=== PATIENT | female | born 1930 | race Caucasian/White ===

== ENCOUNTER 2018-10-20 08:51 | Inpatient (IN) | payer MEDICARE ==
[~2018-10-20] VITALS: Ht 152.4 cm; Wt 45.5 kg
[~2018-10-20 08:51] MED LIST: Acetaminophen/Hydrocodone PO; Docusate Sod/Senna PO; HYDR-3910 PO; KLOR1TAB77 PO; LASI40TA PO; LEVO50TA45 PO; LISI-538 PO; METO25TAB PO; MILK12002 PO; TYLE325T5 PO
[2018-10-20] MEDS ORDERED: ONDANSETRON 4MG/2ML VIAL (J2405) IV ONE (09:15)
[2018-10-20] MEDS ORDERED: MORPHINE 2 MG/ML 1ML SYRINGE (J2270) IV PRN (09:15)
--- NOTE | 2018-10-20 09:47 | REP ---
Clinical: Trauma. Technique: AP and Y views of the right shoulder. Findings: Comminuted displaced fracture through the humeral neck is appreciated. Underlying osteopenia and degenerative changes to the acromioclavicular joint and glenoid noted. Impression: Fracture dislocation at the humeral neck. Electronically Signed by Rogerio Wadsworth MD 10/20/2018 09:39 A
--- NOTE | 2018-10-20 09:50 | REP ---
Clinical: Trauma. Technique: Frontal view of the pelvis with neutral and frog lateral views of the left hip. Findings: Generalized degenerative changes noted throughout the pelvis and bilateral hips. Old left inferior pubic ramus fracture. No acute fracture or dislocation of the pelvis or left hip noted. Impression: Generalized degenerative changes. Old left inferior pubic ramus fracture. No acute fracture or dislocation identified. Electronically Signed by Rogerio Wadsworth MD 10/20/2018 09:42 A
--- NOTE | 2018-10-20 10:31 | REP ---
Clinical: Trauma. Technique: AP and lateral views of the right elbow. Findings: No acute fracture or dislocation identified. Impression: No acute fracture or dislocation appreciated. Electronically Signed by Rogerio Wadsworth MD 10/20/2018 10:23 A
--- NOTE | 2018-10-20 11:02 | REP ---
Clinical: Trauma. Technique: Axial noncontrast images through the right shoulder with coronal and sagittal re-formations as well as multiplanar volumetric 3-D re-formations. Findings: There is comminuted fracture dislocation at the surgical neck of the humerus with fracture fragments involving the greater and lesser tubercles along with anterior displacement of the humerus in relation to the humeral head which maintains relatively appropriate apposition to the underlying glenoid rim. Small fracture fragment involving the superior glenoid rim is suggested. Remainder of the shoulder including clavicle, acromion process, and acromioclavicular joint appear essentially intact. Contusion and traumatic infiltration to the surrounding soft tissues cannot be excluded. Impression: Comminuted fracture dislocation at the surgical neck of the humerus. Possible small fracture fragment from the superior portion of the glenoid rim. Electronically Signed by Rogerio Wadsworth MD 10/20/2018 10:53 A
[2018-10-20] MEDS ORDERED: NORCOTAB PO (11:32)
[2018-10-20 12:14] LABS: BASO % 0.3 % (0.0-1.0); EOS % 0.1 % (0.0-3.0); HEMATOCRIT 37.2 % (36.0-47.0); HEMOGLOBIN 12.2 g/dl (12.0-15.5); LYMPH # 0.5 10^3/uL (1.5-4.5); LYMPH % 5.8 % (24.0-44.0); MEAN CORPUSCULAR HEMOGLOBIN 31.9 pg (27.0-33.0); MEAN CORPUSCULAR HGB CONC 32.8 g/dl (32.0-36.5); MEAN CORPUSCULAR VOLUME 97.1 fl (80.0-96.0); MONO # 0.3 10^3/uL (0.0-0.8); MONO % 4.1 % (0.0-5.0); NEUTROPHILS # 7.1 10^3/uL (1.8-7.7); NEUTROPHILS % 89.4 % (36.0-66.0); PLATELET COUNT, AUTOMATED 133 10^3/uL (150-450); RED BLOOD COUNT 3.83 10^6/uL (4.00-5.40)
[2018-10-20] MEDS ORDERED: METO1TAB87 PO (12:41)
[2018-10-20] MEDS ORDERED: POTA20TA4 PO (12:41)
[2018-10-20 12:44] LABS: ALBUMIN 3.4 GM/DL (3.2-5.2); ALT/SGPT 44 U/L (12-78); BILIRUBIN,TOTAL 0.3 MG/DL (0.2-1.0); BLOOD UREA NITROGEN 36 MG/DL (7-18); CALCIUM LEVEL 8.7 MG/DL (8.8-10.2); CARBON DIOXIDE LEVEL 31 MEQ/L (21-32); CHLORIDE LEVEL 104 MEQ/L (98-107); CREATININE FOR GFR 0.59 MG/DL (0.55-1.30); GLOMERULAR FILTRATION RATE > 60.0 (>32); GLUCOSE, FASTING 102 MG/DL (70-100); POTASSIUM SERUM 3.8 MEQ/L (3.5-5.1); SODIUM LEVEL 142 MEQ/L (136-145); TOTAL PROTEIN 6.7 GM/DL (6.4-8.2)
[2018-10-20] MEDS ORDERED: NORC1TAB4 PO (13:11)
[2018-10-20] MEDS ORDERED: SERT25TA88 PO (13:11)
[2018-10-20] MEDS ORDERED: GENT1SOL16 OU (13:12)
[2018-10-20] MEDS ORDERED: MORPHINE 4 MG/ML 1ML VIAL/SYRINGE (J2270) IV PRN (14:00)
[2018-10-20 15:55] VITALS: BP 123/62
[2018-10-20] MEDS: NORCO, ANEXSIA 5/325MG TABLET (HYDROcodone/ACETAMINOPHEN) PO PRN ×2 (17:54→23:55)
[2018-10-20] MEDS: SERTRALINE HCL 25 MG TABLET PO SCH (19:47)
[2018-10-20] MEDS: METOPROLOL TART 25 MG TABLET PO SCH (19:48)
[2018-10-20] MEDS ORDERED: NS 500 ML IV ONE (21:00)
[2018-10-20 22:00] VITALS: BP 116/61
--- NOTE | 2018-10-21 05:51 | ECGEPIP ---
Stationary ECG Study [facility] - ED Test Date: 2018-10-20 Pat Name: YESSENIA BECKHAM Department: Room: [place] [address] Gender: F Assembly Line Inspector: ALIYAH : [id number] Requested By: Venice Holliday Order Number: [id number] Reading MD: Roger Almeida Measurements Intervals [place] Rate: 83 P: 76 [place]: 151 QRS: 38 QRSD: 86 T: 43 QT: 397 QTc: 469 Interpretive Statements SINUS RHYTHM WITH OCCASIONAL SUPRAVENTRICULAR PREMATURE COMPLEXES SEPTAL MYOCARDIAL INFARCTION, OF INDETERMINATE AGE SIMILAR TO 04/13/15 Electronically Signed On 10-21-2018 5:51:29 EST by Roger Almeida
[2018-10-21] MEDS: LEVOTHYROXINE 50MCG TABLET (0.05MG) PO SCH (05:56)
[2018-10-21] MEDS: NORCO, ANEXSIA 5/325MG TABLET (HYDROcodone/ACETAMINOPHEN) PO PRN ×2 (05:57→20:24)
[2018-10-21 06:00] VITALS: BP 135/67
[2018-10-21 06:19] LABS: BASO % 0.6 % (0.0-1.0); EOS % 0.4 % (0.0-3.0); HEMATOCRIT 33.4 % (36.0-47.0); LYMPH # 0.7 10^3/uL (1.5-4.5); LYMPH % 12.8 % (24.0-44.0); MEAN CORPUSCULAR HEMOGLOBIN 32.5 pg (27.0-33.0); MEAN CORPUSCULAR HGB CONC 32.9 g/dl (32.0-36.5); MEAN CORPUSCULAR VOLUME 98.8 fl (80.0-96.0); MONO # 0.5 10^3/uL (0.0-0.8); MONO % 9.2 % (0.0-5.0); NEUTROPHILS % 76.6 % (36.0-66.0); PLATELET COUNT, AUTOMATED 133 10^3/uL (150-450); RED BLOOD COUNT 3.38 10^6/uL (4.00-5.40); WHITE BLOOD COUNT 5.2 10^3/uL (4.0-10.0)
[2018-10-21 06:40] LABS: BLOOD UREA NITROGEN 34 MG/DL (7-18); CALCIUM LEVEL 8.4 MG/DL (8.8-10.2); CARBON DIOXIDE LEVEL 31 MEQ/L (21-32); CHLORIDE LEVEL 107 MEQ/L (98-107); CREATININE FOR GFR 0.61 MG/DL (0.55-1.30); GLOMERULAR FILTRATION RATE > 60.0 (>32); GLUCOSE, FASTING 105 MG/DL (70-100); POTASSIUM SERUM 3.8 MEQ/L (3.5-5.1); SODIUM LEVEL 143 MEQ/L (136-145)
[2018-10-21] MEDS: POTASSIUM CHLORIDE 10 MEQ SR TABLET PO SCH (08:34)
[2018-10-21] MEDS: LISINOPRIL 20 MG TAB PO SCH (08:35)
[2018-10-21] MEDS: METOPROLOL TART 25 MG TABLET PO SCH ×2 (08:35→20:23)
[2018-10-21] MEDS: FUROSEMIDE 40 MG TAB PO SCH (08:35)
--- NOTE | 2018-10-21 09:11 | HPE ---
DATE OF ADMISSION: 10/20/2018 88-year-old female with past medical history of hypertension, hypothyroidism, history of fall in 2015 with subsequent left wrist and left hip fracture, who presents to the emergency room after falling at home in the morning. She was washing her kitchen with a bucket and the water spilled and she tripped and slipped and fell on the right side of her body and was able to call for help and came to the ER for evaluation. In the ER, x-rays showed a comminuted dislocation of the right humerus. The patient was to be sent home today, but the family was concerned about the patient's ambulatory status. So, physical therapy came to the ER to assess the patient and they realized that she is unsafe for discharge due to gait instability, so she will be admitted for further management. The patient at this time has 2 out of 10 pain in her right shoulder and otherwise offers no other complaints. She denies any chest pain or palpitations prior to the event, this was pure mechanical fall. PAST MEDICAL HISTORY: Hypertension. Hypothyroidism. Also has a history of a fall with a subsequent left wrist and left hip fracture in 2014. ALLERGIES: She has drug allergies to: 1. CODEINE. 2. SULFA medications. FAMILY HISTORY: Noncontributory. SOCIAL HISTORY: Patient denies tobacco, alcohol or illicit drugs. HOME MEDICATIONS: - [place] one tablet orally every 6 hours as needed - Lasix 40 mg orally daily - artificial tears as needed - Synthroid 50 mcg orally daily - lisinopril 20 mg orally daily - metoprolol tartrate 25 mg orally twice daily - potassium chloride 20 mEq orally daily - sertraline 25 mg orally in the evening REVIEW OF SYSTEMS: Negative in all 10 major systems except for which is mentioned in the history of present illness. VITALS: Blood pressure is 145/79, heart rate is 82 and regular, respiratory rate is 18, temperature 97.2, oxygen saturation is 97% on room air. Head is atraumatic, normocephalic. Neck supple, no jugular venous distention (JVD). Lungs are clear to auscultation. S1 and S2 audible, no murmurs appreciated. Abdomen soft, positive bowel sounds. No pedal edema. Skin examination shows a large ecchymosis in her right shoulder area. Neurologic examination: Patient awake, alert and oriented times three. LABS: WBC 8, hemoglobin 12.2, hematocrit 37.2, platelets 133,000. Sodium 142, potassium 3.8, chloride 104, CO2 31, BUN 36, creatinine 0.59, calcium is 8.7. X-ray of the hips and pelvis was negative for any fracture. Shoulder CT showed a comminuted fracture dislocation at the surgical neck of the right humerus. IMPRESSION: 1. Right shoulder fracture with dislocation. 2. Fall. PLAN: Patient is to be admitted to the medical/surgical floor on observation status. Dr. Singer, orthopedic doctor, is aware and is going to see the patient in the morning. I will continue all of her other previous medications and give her morphine for breakthrough pain and continue her [place] as well. Will have physical therapy/occupational therapy (PT/OT) continue to assess her. She will likely need subacute rehab.
[2018-10-21 14:00] VITALS: BP 123/60
[2018-10-21] MEDS: SERTRALINE HCL 25 MG TABLET PO SCH (20:23)
[2018-10-21 22:00] VITALS: BP 163/82
[2018-10-22] MEDS: LEVOTHYROXINE 50MCG TABLET (0.05MG) PO SCH (05:46)
[2018-10-22 06:00] VITALS: BP 163/82
[2018-10-22 08:00] VITALS: BP 120/56
[2018-10-22] MEDS: FUROSEMIDE 40 MG TAB PO SCH (08:28)
[2018-10-22] MEDS: LISINOPRIL 20 MG TAB PO SCH (08:28)
[2018-10-22] MEDS: METOPROLOL TART 25 MG TABLET PO SCH ×2 (08:29→20:38)
[2018-10-22] MEDS: POTASSIUM CHLORIDE 10 MEQ SR TABLET PO SCH (08:29)
[2018-10-22] MEDS: NORCO, ANEXSIA 5/325MG TABLET (HYDROcodone/ACETAMINOPHEN) PO PRN ×2 (08:29→16:29)
--- NOTE | 2018-10-22 09:57 | IPN ---
DATE OF SERVICE: 10/21/2018 Lisa is seen on [facility]. Her primary care provider is not specified in the history and physical, and the patient tells me she sees Dr. Cooper, who a few years ago. Anyway, she fell and fractured her right humerus. Per nursing staff, orthopedics does not feel as though she is a surgical case. Waiting for their consultation. PHYSICAL EXAMINATION: Vital signs stable. Lungs clear. Heart: Regular rate and rhythm. Abdomen: Soft, nontender. No peripheral edema. LABORATORIES: Look unremarkable. Complete blood count (CBC) is stable. Electrolytes unremarkable. IMPRESSION: 1. Fractured right humerus. Per orthopedics, nonsurgical treatment plan. 2. Hypertension. Continue lisinopril 20 mg daily, metoprolol tartrate 25 mg twice a day, Lasix 40 mg a day, potassium chloride 20 mEq daily. 3. History of depression. Continue sertraline 25 mg daily. 4. Hypothyroidism. Continue levothyroxine 50 mcg daily.
--- NOTE | 2018-10-22 09:58 | CR ---
DATE OF CONSULTATION: 10/20/2018 CHIEF COMPLAINT: Right proximal humerus fracture. HISTORY OF PRESENT ILLNESS: This 88-year-old female was mopping at home, had a slip and fall. She fell directly onto her right shoulder. She did not experience any head injury, loss of consciousness, chest pain or shortness of breath. She is right hand dominant. She has never had any injuries to her right shoulder. PAST MEDICAL HISTORY: Includes hypertension. MEDICATIONS: Include: - furosemide - lisinopril - potassium chloride - levothyroxine - metoprolol - sertraline - morphine sulfate - hydrocodone/acetaminophen ALLERGIES: 1. CODEINE. 2. SULFA antibiotics. SURGICAL HISTORY: Hysterectomy. SOCIAL HISTORY: She is retired. 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 She is a nonsmoker. Does not use any alcohol. PHYSICAL EXAMINATION: She is a well appearing 88-year-old female who looks her stated age, and is in no acute distress. Vital signs were regular. Temperature 98.8, blood pressure 135/67, pulse rate 84, 91% on room air. Inspection of the right shoulder revealed moderate to severe amount of swelling and bruising on the right shoulder. No obvious deformity to her elbow, hand or wrist. Palpation revealed pain overlying this area and moderate severe amount of swelling tracking down the upper humerus down the upper arm. There is no tenderness about the elbow and range of motion was full there. She had normal sensation overlying the deltoid at the median, radial and ulnar nerve distributions. Normal motor function to the aforementioned nerves plus PIN/AN. Strong radial pulse. Radiographs were reviewed this shows a fracture of the right proximal humerus. This is transverse in nature at the junction of the metaphysis diaphysis in the area of the surgical neck. CT scan was also reviewed that shows the same, plus potentially a fracture at the level of the greater tuberosity. This is 100% displaced. It is quite angulated. The shaft is displaced anteriorly. ASSESSMENT/PLAN: This 88-year-old female with 100% displaced right proximal humerus fracture. I would like to treat this initially in a sling. We will try to get her up and moving. She was admitted under the hospitalist service as occupational therapy determined that she could not go home without proper supports. We will try to get those for her while she is in the hospital. I would like her to get up and start ambulating with the sling slightly use to try to get gravity to align the fracture a little bit better. We will take repeat x-rays in a few days. I suspect that this pleasant, thin, 88-year-old female with relatively minimal comorbidities may benefit from a reverse total shoulder arthroplasty (RTSA) or even ORIF given the fracture pattern. Given the amount of displacement I worry that this will go on to avascular necrosis of the humeral head or nonunion with ORIF or conservative management. I think her best chance of having a relatively good and high outcome would be for RTSA. We will see how the fracture better aligns in the next few days with ambulating and she can go home whenever she is comfortable and safe to do so. I would like to see her in the clinic in 5-7 days after she goes home, but I will definitely follow her in the hospital to see how things are going. RAJI
[2018-10-22 14:00] VITALS: BP 134/76
[2018-10-22 20:00] VITALS: BP 120/56
[2018-10-22] MEDS: SERTRALINE HCL 25 MG TABLET PO SCH (20:38)
[2018-10-22 22:00] VITALS: BP 120/56
[2018-10-23] MEDS: NORCO, ANEXSIA 5/325MG TABLET (HYDROcodone/ACETAMINOPHEN) PO PRN (03:59)
[2018-10-23] MEDS: LEVOTHYROXINE 50MCG TABLET (0.05MG) PO SCH (05:29)
[2018-10-23 06:00] VITALS: BP 118/60
[2018-10-23] MEDS: MIRALAX *UNIT DOSE* 17GM PACKET PO SCH (09:07)
[2018-10-23] MEDS: SENOKOT S TAB PO SCH ×2 (09:07→21:00)
[2018-10-23] MEDS: FUROSEMIDE 40 MG TAB PO SCH (09:07)
[2018-10-23] MEDS: ASPIRIN 325 MG TAB PO SCH (09:07)
[2018-10-23] MEDS: METOPROLOL TART 25 MG TABLET PO SCH ×2 (09:08→21:01)
[2018-10-23] MEDS: LISINOPRIL 20 MG TAB PO SCH (09:08)
[2018-10-23] MEDS: POTASSIUM CHLORIDE 10 MEQ SR TABLET PO SCH (09:08)
[2018-10-23 13:05] LABS: HEMATOCRIT 33.7 % (36.0-47.0); HEMOGLOBIN 11.1 g/dl (12.0-15.5); MEAN CORPUSCULAR HEMOGLOBIN 32.3 pg (27.0-33.0); MEAN CORPUSCULAR HGB CONC 32.9 g/dl (32.0-36.5); PLATELET COUNT, AUTOMATED 170 10^3/uL (150-450); RED BLOOD COUNT 3.44 10^6/uL (4.00-5.40); WHITE BLOOD COUNT 7.2 10^3/uL (4.0-10.0)
[2018-10-23 13:28] LABS: BLOOD UREA NITROGEN 42 MG/DL (7-18); CARBON DIOXIDE LEVEL 30 MEQ/L (21-32); CHLORIDE LEVEL 104 MEQ/L (98-107); CREATININE FOR GFR 0.89 MG/DL (0.55-1.30); GLOMERULAR FILTRATION RATE > 60.0 (>32); GLUCOSE, FASTING 101 MG/DL (70-100); POTASSIUM SERUM 4.3 MEQ/L (3.5-5.1); SODIUM LEVEL 140 MEQ/L (136-145)
--- NOTE | 2018-10-23 13:47 | IPN ---
DATE: 10/23/2018 Lisa is seen on [facility]. Really feels quite well, and no change from her prior evaluation. Says her arm is less swollen and she is eager to get out walking today. PHYSICAL EXAM: Afebrile, 118/60. Lungs: Clear. Heart: Regular rate and rhythm. Abdomen: Soft, nontender. No peripheral edema. Right arm in a sling. IMPRESSION: 1. Fractured right humerus. Per orthopedics, conservative treatment planned. 2. Hypertension. Blood pressure is well controlled on current regimen. 3. Depression. Stable on current dose of sertraline. 4. Hypothyroidism. Continue levothyroxine. Will check a thyroid-stimulating hormone (TSH) when she gets her next labs drawn.
[2018-10-23 14:00] VITALS: BP 101/57
[2018-10-23] MEDS: SERTRALINE HCL 25 MG TABLET PO SCH (21:01)
[2018-10-23] MEDS: ACETAMINOPHEN 325 MG TAB PO PRN (21:01)
[2018-10-23 22:00] VITALS: BP 120/56
[2018-10-24] MEDS: LEVOTHYROXINE 50MCG TABLET (0.05MG) PO SCH (05:36)
[2018-10-24] MEDS: ACETAMINOPHEN 325 MG TAB PO PRN ×2 (05:36→21:01)
[2018-10-24 06:00] VITALS: BP 102/56
[2018-10-24] MEDS: ASPIRIN 325 MG TAB PO SCH (08:21)
[2018-10-24] MEDS: SENOKOT S TAB PO SCH ×2 (08:21→21:00)
[2018-10-24] MEDS: POTASSIUM CHLORIDE 10 MEQ SR TABLET PO SCH (08:21)
[2018-10-24] MEDS: FUROSEMIDE 40 MG TAB PO SCH (08:21)
[2018-10-24] MEDS: LISINOPRIL 20 MG TAB PO SCH (08:21)
[2018-10-24] MEDS: METOPROLOL TART 25 MG TABLET PO SCH ×2 (08:21→21:00)
[2018-10-24] MEDS: MIRALAX *UNIT DOSE* 17GM PACKET PO SCH (08:22)
[2018-10-24 14:00] VITALS: BP 95/53
[2018-10-24] MEDS: SERTRALINE HCL 25 MG TABLET PO SCH (21:01)
[2018-10-24 22:00] VITALS: BP 102/57
[2018-10-25] MEDS: ACETAMINOPHEN 325 MG TAB PO PRN (03:14)
[2018-10-25] MEDS: LEVOTHYROXINE 50MCG TABLET (0.05MG) PO SCH (05:32)
[2018-10-25 06:00] VITALS: BP 90/54
--- NOTE | 2018-10-25 08:10 | REP ---
Clinical: Known humeral fracture. Technique: AP and lateral views of the right humerus. Findings: Humeral neck fracture is again identified with complete displacement/ dissociation of the to main fracture components. Underlying arthritic degenerative changes of the glenohumeral joint noted. Impression: Complete displacement/dissociation of the humeral neck fracture. Electronically Signed by Rogerio Wadsworth MD 10/25/2018 08:02 A
[2018-10-25] MEDS: ASPIRIN 325 MG TAB PO SCH (09:12)
[2018-10-25] MEDS: FUROSEMIDE 40 MG TAB PO SCH (09:15)
[2018-10-25] MEDS: SENOKOT S TAB PO SCH ×2 (09:15→20:36)
[2018-10-25] MEDS: METOPROLOL TART 25 MG TABLET PO SCH ×2 (09:15→20:36)
[2018-10-25] MEDS: LISINOPRIL 20 MG TAB PO SCH (09:15)
[2018-10-25] MEDS: MIRALAX *UNIT DOSE* 17GM PACKET PO SCH (09:16)
[2018-10-25] MEDS: POTASSIUM CHLORIDE 10 MEQ SR TABLET PO SCH (09:16)
[2018-10-25 14:00] VITALS: BP 84/50
--- NOTE | 2018-10-25 17:14 | REP ---
Clinical: Fracture. Alignment. Technique: AP and Y views of the right shoulder. Findings: Comminuted fracture-displacement through the proximal humeral neck with overlying soft tissue swelling. The acromioclavicular joint appears intact. Impression: Comminuted fracture displacement through the proximal humeral neck. Electronically Signed by Rogerio Wadsworth MD 10/25/2018 05:05 P
[2018-10-25] MEDS: SERTRALINE HCL 25 MG TABLET PO SCH (20:36)
[2018-10-25] MEDS: NORCO, ANEXSIA 5/325MG TABLET (HYDROcodone/ACETAMINOPHEN) PO PRN (20:37)
[2018-10-25 22:00] VITALS: BP 107/58
[2018-10-26] MEDS: LEVOTHYROXINE 50MCG TABLET (0.05MG) PO SCH (05:57)
[2018-10-26 06:00] VITALS: BP 117/69
[2018-10-26] MEDS: ASPIRIN 325 MG TAB PO SCH (09:01)
[2018-10-26] MEDS: MIRALAX *UNIT DOSE* 17GM PACKET PO SCH (09:01)
[2018-10-26] MEDS: SENOKOT S TAB PO SCH ×2 (09:01→20:52)
[2018-10-26] MEDS: METOPROLOL TART 25 MG TABLET PO SCH ×2 (09:02→20:52)
[2018-10-26] MEDS: LISINOPRIL 20 MG TAB PO SCH (09:02)
[2018-10-26] MEDS: POTASSIUM CHLORIDE 10 MEQ SR TABLET PO SCH (09:02)
[2018-10-26] MEDS: FUROSEMIDE 40 MG TAB PO SCH (09:02)
[2018-10-26 14:00] VITALS: BP 101/62
[2018-10-26] MEDS: SERTRALINE HCL 25 MG TABLET PO SCH (20:52)
[2018-10-26] MEDS: ACETAMINOPHEN 325 MG TAB PO PRN (20:53)
[2018-10-26 22:00] VITALS: BP 116/58
[2018-10-26] MEDS: NORCO, ANEXSIA 5/325MG TABLET (HYDROcodone/ACETAMINOPHEN) PO PRN (22:52)
[2018-10-27] MEDS: LEVOTHYROXINE 50MCG TABLET (0.05MG) PO SCH (05:13)
[2018-10-27 06:00] VITALS: BP 113/64
[2018-10-27] MEDS: POTASSIUM CHLORIDE 10 MEQ SR TABLET PO SCH (09:34)
[2018-10-27] MEDS: ASPIRIN 325 MG TAB PO SCH (09:34)
[2018-10-27 09:35] VITALS: BP 113/64
[2018-10-27] MEDS: METOPROLOL TART 25 MG TABLET PO SCH (09:35)
[2018-10-27] MEDS: FUROSEMIDE 40 MG TAB PO SCH (09:35)
[2018-10-27] MEDS: LISINOPRIL 20 MG TAB PO SCH (09:36)
[2018-10-27] MEDS: SENOKOT S TAB PO SCH (09:36)
[2018-10-27] MEDS: MIRALAX *UNIT DOSE* 17GM PACKET PO SCH (09:36)
[2018-10-27] MEDS ORDERED: NORC1TAB4 PO (10:59)
--- NOTE | 2018-10-27 11:09 | DS.PDOC ---
Discharge Summary General Date of Admission Oct 23, 2018 at 12:31 Date of Discharge 10/27/18 Attending Physician: SATURDAY,MYRTLE LOCKWOOD Discharge Summary PROCEDURES PERFORMED DURING STAY: [None]. ADMITTING DIAGNOSES: 1. fall with shoulder pain DISCHARGE DIAGNOSES: 1. Displaced fracture of femoral neck COMPLICATIONS/CHIEF COMPLAINT: Fall, Humerus Fracture. HISTORY OF PRESENT ILLNESS: 88 year old female with significant past medical hx of HTN, hypothyroidism, depression presents with shoulder pain s/p mechanical fall HOSPITAL COURSE: CT should showed displaced fracture of femoral neck, possible small fracture of superior portion of glenoid. basic labs performed. pain control, orthopedics consult, shoulder placed in sling. Pt to follow up with ortho 5 to 7 days after discharge. DISCHARGE MEDICATIONS: Please see below. ALLERGIES: Please see below. PHYSICAL EXAMINATION ON DISCHARGE: VITAL SIGNS: Please see below. GENERAL: well nourished, NAD HEENT: normocephalic, atraumatic NECK: supple, no JVP CARDIOVASCULAR EXAMINATION: regular, rate and rhythm, normal s1 and s2, no MGR RESPIRATORY EXAMINATION: clear to auscultation b/l, no crackles or wheezing ABDOMINAL EXAMINATION: soft, non tender, non distended, + BS EXTREMITIES: LE no edema, no calf tender, RUQ sling, mild edema hand NEUROLOGICAL EXAMINATION: A&OX3, no focal deficits PSYCHIATRIC EXAMINATION: mood and affect normal LABORATORY DATA: Please see below. IMAGING: see HPI for CT. XR elbow: no fractures. XR hip pelvis: DJD, old pubic rami fracture. XR shoulder: displaced fracture of surgical humeral neck PROGNOSIS: good ACTIVITY: [As tolerated]. DIET: cardiac DISCHARGE PLAN: continue pain medications and follow up with orthopedic surgery in 5 to 7 days DISPOSITION: Home DISCHARGE INSTRUCTIONS: 1. follow up with orthopedics in 5 to 7 days 2. follow up with primary care provider within 1 week 3. take pain medications as needed ITEMS TO FOLLOWUP ON ON OUTPATIENT: 1. see discharge instructions DISCHARGE CONDITION: [Stable]. TIME SPENT ON DISCHARGE: Greater than 45 minutes. Vital Signs/I&Os Vital Signs Date Time Temp Pulse Resp B/P (MAP) Pulse Ox O2 Delivery O2 Flow Rate FiO2 10/27/18 09:35 62 113/64 10/27/18 06:00 97.9 16 98 Room Air 10/22/18 22:00 98 I&O- Last 24 Hours up to 6 AM 10/27/18 05:59 Intake Total 1961 ml Output Total 500 ml Balance 1461 ml Discharge Medications Scheduled (Sertraline HCl) 25 Mg Tab, 25 MG PO QHS, (Reported) Furosemide (Lasix) 40 Mg Tab, 40 MG PO DAILY, (Reported) Levothyroxine Sodium (Levoxyl) 50 Mcg Tab, 50 MCG PO DAILY, (Reported) Lisinopril (Lisinopril) 20 Mg Tab, 20 MG PO DAILY, (Reported) Metoprolol Tartrate (Metoprolol Tartrate) 25 Mg Tab, 25 MG PO BID, (Reported) Potassium Chloride (Potassium Chloride Cr) 20 Meq Tab, 20 MEQ PO DAILY, (Reported) Scheduled PRN (Genteal Tears 0.1-0.3 %) 1 Myrtle Myrtle, 1 DROP OU QID PRN for DRY EYES, (Reported) Acetaminophen/Hydrocodone ([place] 5-325 mg) 1 Tab Tab, 1 TAB PO Q6H PRN for PAIN, (Reported) Acetaminophen/Hydrocodone ([place] 5-325 mg) 1 Tab Tab, 1 TAB PO BIDP PRN for pain Allergies Coded Allergies: Sulfa Antibiotics (Verified Allergy, Unknown, 04/13/15) Codeine (Verified Adverse Reaction, Mild, HYPER, 04/13/15) SATURDAYMYRTLE MD Oct 27, 2018 11:09
--- NOTE | 2018-10-28 11:53 | REP ---
Clinical: Right humerus fracture . Technique: Tan scale and color Doppler evaluation using linear high frequency transducer. Findings: Examination is limited due to the humeral fracture and swelling limited mobility and sonographic window. Ultrasound examination of the right upper extremity deep venous structures including jugular, subclavian, axillary, brachial, basilic, and cephalic veins demonstrates no obvious deep venous thrombosis. Impression: Limited examination. No obvious right upper extremity deep venous thrombosis. Electronically Signed by Rogerio Wadsworth MD 10/27/2018 12:27 P
== END 2018-10-27 14:15 | disposition home health service (06) | DRG 563 ==
LOC: M ED 08:51 → M ED INP 13:46 → M MS5PR 15:37 → OBSVTOIN 10-23 12:31
PROVIDERS: ADMIT Internal Medicine; ATTEND Internal Medicine
DX: S42.211A Unspecified displaced fracture of surgical neck of right humerus, initial encounter for closed fracture (principal); E03.9 Hypothyroidism, unspecified; I10 Essential (primary) hypertension; Z88.2 Allergy status to sulfonamides; Z88.5 Allergy status to narcotic agent; Z79.899 Other long term (current) drug therapy; W01.0XXA Fall on same level from slipping, tripping and stumbling without subsequent striking against object, initial encounter; Y93.E5 Activity, floor mopping and cleaning; Y92.010 Kitchen of single-family (private) house as the place of occurrence of the external cause; F32.9 Major depressive disorder, single episode, unspecified

== ENCOUNTER → 2018-11-10 | Outpatient (CLI) | payer MEDICARE ==
[~2018-11-10] MED LIST changes: +GENT1SOL16 OU; -LASI40TA PO; +LASI40TA9 PO; +METO1TAB87 PO; +MILK120011 PO; -MILK12002 PO; +NORC1TAB4 PO; +NORCOTAB PO; +POTA20TA4 PO; +SERT25TA88 PO
[2018-11-10 10:56] LABS: HEMATOCRIT 35.1 % (36.0-47.0); HEMOGLOBIN 11.6 g/dl (12.0-15.5); MEAN CORPUSCULAR HEMOGLOBIN 32.6 pg (27.0-33.0); MEAN CORPUSCULAR VOLUME 98.6 fl (80.0-96.0); PLATELET COUNT, AUTOMATED 260 10^3/uL (150-450); RED BLOOD COUNT 3.56 10^6/uL (4.00-5.40); WHITE BLOOD COUNT 4.6 10^3/uL (4.0-10.0)
[2018-11-10 11:08] LABS: INR 0.95; PROTHROMBIN TIME 12.8 SECONDS (12.1-14.4)
[2018-11-10 11:19] LABS: ERYTHROCYTE SEDIMENTATION RATE 52 mm/hr (0-42)
[2018-11-10 11:21] LABS: ALBUMIN 3.5 GM/DL (3.2-5.2); ALT/SGPT 27 U/L (12-78); BILIRUBIN,TOTAL 0.4 MG/DL (0.2-1.0); BLOOD UREA NITROGEN 22 MG/DL (7-18); CALCIUM LEVEL 8.9 MG/DL (8.8-10.2); CARBON DIOXIDE LEVEL 33 MEQ/L (21-32); CHLORIDE LEVEL 101 MEQ/L (98-107); CREATININE FOR GFR 0.48 MG/DL (0.55-1.30); GLOMERULAR FILTRATION RATE > 60.0 (>32); GLUCOSE, FASTING 83 MG/DL (70-100); POTASSIUM SERUM 4.3 MEQ/L (3.5-5.1); SODIUM LEVEL 141 MEQ/L (136-145); TOTAL PROTEIN 6.5 GM/DL (6.4-8.2)
--- NOTE | 2018-11-10 11:26 | REP ---
Chest two views HISTORY: Preop Comparison: 04/13/2015 There is elevation of the right hemidiaphragm. The lungs are clear. The heart is normal in size. The pulmonary vasculature is normal in appearance. There is a fracture dislocation of right humerus. IMPRESSION: Fracture dislocation of the right humerus. Electronically Signed by Freeman Jerry MD 11/10/2018 11:18 A
--- NOTE | 2018-11-12 07:58 | ECGEPIP ---
Stationary ECG Study [facility] Test Date: 2018-11-10 Pat Name: YESSENIA BECKHAM Department: Room: - Gender: F Fruit Receiver: : 1930 Requested By: ALESSANDRO ORDONEZ Order Number: [id number] Reading MD: Abran Ramirez Measurements Intervals [place] Rate: 71 P: 67 [place]: 141 QRS: 23 QRSD: 82 T: 41 QT: 410 QTc: 447 Interpretive Statements SINUS RHYTHM Electronically Signed On 11-12-2018 7:58:34 EST by Abran Ramirez
== END ==
LOC: M LAB 10:10
PROVIDERS: ATTEND Orthopaedic Surgery Sports Medicine
DX: Z01.818 Encounter for other preprocedural examination (principal); S42.211A Unspecified displaced fracture of surgical neck of right humerus, initial encounter for closed fracture; W01.0XXA Fall on same level from slipping, tripping and stumbling without subsequent striking against object, initial encounter; Y93.E5 Activity, floor mopping and cleaning; Y92.010 Kitchen of single-family (private) house as the place of occurrence of the external cause

== ENCOUNTER 2019-04-14 08:12 | Emergency (ER) | payer MEDICARE ==
[~2019-04-14] VITALS: Ht 152.4 cm; Wt 43.2 kg
[~2019-04-14 08:12] MED LIST changes: +HYDR-3715 PO; +METO1TAB63 PO; -METO25TAB PO; -NORC1TAB4 PO; +NORC1TAB7 PO; -NORCOTAB PO
[2019-04-14] MEDS ORDERED: SERT-155 (08:21)
[2019-04-14] MEDS ORDERED: ADACEL/BOOSTRIX VACCINE (DIPHTH/PERTUSS/ACELL/TETANUS)0.5ML SYR (90715) IM ONE (09:15)
[2019-04-14] MEDS ORDERED: LIDOCAINE 2% MDV 20 ML VIAL SC ONE (09:15)
--- NOTE | 2019-04-14 09:47 | REP ---
LEFT FOREARM, TWO VIEWS: Two views of the left forearm performed. There is an old healed fracture of the distal end of the radius. I see no acute fracture or dislocation. Electronically Signed by Quinton Tan MD 04/14/2019 04:28 P
[2019-04-14 10:51] VITALS: BP 120/69
[2019-04-14] MEDS ORDERED: NEOSPORIN OINT 0.9 GM PKT (FLOOR STOCK) TOP ONE (11:00)
[2019-04-14] MEDS ORDERED: DERMABOND TOPICAL SKIN ADHESIVE TOP ONE (11:00)
== END 2019-04-14 11:14 | disposition home or self-care (01) ==
LOC: M ED 08:12
DX: S51.812A Laceration without foreign body of left forearm, initial encounter (principal); W19.XXXA Unspecified fall, initial encounter; Y92.091 Bathroom in other non-institutional residence as the place of occurrence of the external cause; Y93.89 Activity, other specified; Y99.9 Unspecified external cause status; I10 Essential (primary) hypertension; E03.9 Hypothyroidism, unspecified; Z87.81 Personal history of (healed) traumatic fracture; Z79.899 Other long term (current) drug therapy; Z88.2 Allergy status to sulfonamides; Z88.5 Allergy status to narcotic agent